=== PATIENT | female | born 1955 | race Caucasian/White ===

== ENCOUNTER 2020-08-13 11:41 | Emergency (ER) | payer MEDICARE ==
[~2020-08-13] VITALS: Ht 160 cm; Wt 44.0 kg
[2020-08-13] MEDS ORDERED: METOPROL TAR25 MG PO (12:20)
[2020-08-13] MEDS ORDERED: CRESTOR5 M1 PO (12:20)
[2020-08-13] MEDS ORDERED: SPIRIVA HANDIH18 MCG (12:21)
[2020-08-13] MEDS ORDERED: ASPIRIN81 MG PO (12:22)
[2020-08-13] MEDS ORDERED: PLAVIX75 MG PO (12:22)
[2020-08-13] MEDS ORDERED: LOSARTAN POTASS50 MG PO (12:23)
[2020-08-13] MEDS ORDERED: ACETAMINOP160 MG/5 M PO (12:23)
[2020-08-13 12:25] LABS: HEMOGLOBIN 13.1 g/dl (12.0-16.0); MEAN CELL VOLUME 92.3 fL CALC (80.0-100.0); MEAN CORPUSCULAR HGB 28.8 pG CALC (26.0-32.0); MEAN CORPUSCULAR HGB CONC 31.2 g/dL CAL (32.0-36.0); NEUT# 24.72 thou/uL (2.00-7.15); RED BLOOD COUNT 4.55 mill/uL (4.20-5.60); RED CELL DISTRI WIDTH 14.6 % (11.5-15.5)
[2020-08-13 12:49] LABS: ALBUMIN 3.7 g/dL (3.2-5.0); ALKALINE PHOSPHATASE 57 u/l (38-126); ANION GAP 10 (6-22 (CALC)); BUN 17 mg/dL (8-23); BUN/CREATININE RATIO 25 (12-20 (CALC)); CARBON DIOXIDE 29 mmol/l (22-30); CHLORIDE 99 mmol/l (95-108); CREATININE 0.7 mg/dL (0.5-1.0); GFR > 60 ML/MIN (>=60 (CALC)); GFR FOR AFR.AMER. > 60 ML/MIN (>=60 (CALC)); SGOT/AST 42 u/l (9-36); SODIUM 134 mmol/l (137-146); TOTAL PROTEIN 6.7 g/dL (6.3-8.2)
[2020-08-13 13:03] LABS: MYOGLOBIN 18 ng/mL (0 - 62)
[2020-08-13 13:32] VITALS: BP 176/79
== END 2020-08-13 13:46 | disposition home or self-care (01) ==
LOC: ED 11:41
PROVIDERS: Emergency Medicine
DX: F41.9 Anxiety disorder, unspecified (principal); I10 Essential (primary) hypertension; M31.6 Other giant cell arteritis